=== PATIENT | female | born 1980 | race Caucasian/White ===

== ENCOUNTER 2020-02-23 14:05 | Emergency (ER) | payer OTHER ==
[~2020-02-23 14:05] MED LIST: HYDROCODON-ACE1 EAC2 PO; KEFLEX CAP 500500 MG PO; PROVENTIL HFA6.7 GM INH
[2020-02-23 14:54] LABS: HEMOGLOBIN 13.8 gm/dl (12.3-15.3); RED BLOOD COUNT 4.78 M/UL (4.00-5.10); WHITE BLOOD COUNT 4.2 K/UL (4.5-11.0)
[2020-02-23 15:13] LABS: BUN/CREATININE RATIO 18 (0-10)
[2020-02-23] MEDS ORDERED: KEFLEX CAP 500500 MG PO (17:48)
== END 2020-02-23 18:08 | disposition home or self-care (01) ==
LOC: ER1 14:05
PROVIDERS: Emergency Medicine
DX: N10 Acute pyelonephritis (principal); U07.1 COVID-19
CPT/HCPCS: 80053; 81001; 83690; 84703; 85025; 99284; J7030; Q9967; U0002

== ENCOUNTER 2021-05-10 13:00 | Emergency (ER) | payer OTHER ==
[2021-05-10 13:47] LABS: HEMOGLOBIN 13.7 gm/dl (12.3-15.3); RED BLOOD COUNT 4.66 M/UL (4.00-5.10); WHITE BLOOD COUNT 6.1 K/UL (4.5-11.0)
[2021-05-10 14:10] LABS: BUN/CREATININE RATIO 16 (0-10)
[2021-05-10] MEDS ORDERED: TYLENOL 8 HOUR650 MG PO (16:48)
[2021-05-10] MEDS ORDERED: ZOFRAN 4 MG TAB4 MG PO (16:48)
== END 2021-05-10 17:05 | disposition home or self-care (01) ==
LOC: ER1 13:00
PROVIDERS: Physician Assistant Medical
DX: I95.1 Orthostatic hypotension (principal); F17.210 Nicotine dependence, cigarettes, uncomplicated; E03.9 Hypothyroidism, unspecified
CPT/HCPCS: 70450; 71045; 72125; 72131; 80053; 81001; 82550; 82553; 83690; 84439; 84443; 84484; 85025; 93005; 99285

== ENCOUNTER 2021-05-20 15:04 | Emergency (ER) | payer OTHER ==
[~2021-05-20 15:04] MED LIST changes: +TYLENOL 8 HOUR650 MG PO; +ZOFRAN 4 MG TAB4 MG PO
== END 2021-05-20 17:40 | disposition left against medical advice (07) ==
LOC: ER1 15:04
DX: Z53.21 Procedure and treatment not carried out due to patient leaving prior to being seen by health care provider (principal)

== ENCOUNTER → 2021-11-06 | Outpatient (CLI) | payer OTHER | LOC: CATH 10-18 10:00 | DX: R55 Syncope and collapse (principal); R42 Dizziness and giddiness; F41.9 Anxiety disorder, unspecified; F17.200 Nicotine dependence, unspecified, uncomplicated; R29.90 Unspecified symptoms and signs involving the nervous system; R00.2 Palpitations; U09.9 Post COVID-19 condition, unspecified ==